=== PATIENT | male | born 2000 | race Caucasian/White ===

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

== ENCOUNTER 2024-05-03 22:58 | Emergency (ER) | payer MEDICAID, SELFPAY ==
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
[2024-05-03 23:33] LABS: Lactate 3.5 mmol/L (0.6-1.4)
[2024-05-03 23:37] LABS: Abs Immature Grans 0.39 10^3/uL (0.0-0.06); Absolute Basophil Count 0.06 10^3/uL (0.0-0.2); Absolute Eosinophil Count 0.06 10^3/uL (0.0-0.7); Absolute Lymphocyte Count 2.91 10^3/uL (1.2-3.4); Absolute Neutrophil Count 6.19 10^3/uL (1.2-6.7); Basophils % 0.6 %; Eosinophils % 0.6 %; HCT 36.6 % (40.0-50.0); HGB 13.2 g/dL (13.5-17.5); Immature Grans % 3.7 %; Lymphocytes % 27.4 %; MCH 32.2 pg (27.0-33.0); MCHC 36.1 % (32.0-36.0); MCV 89 fL (80-95); MPV 9.7 fL (8.0-11.0); Monocytes % 9.4 %; Neutrophils % 58.3 %; Platelet Count 280 10^3/uL (130-400); RDW 11.9 % (11.8-14.1); RDW-SD 38.4 fL; WBC 10.61 10^3/uL (4.4-10.8)
[2024-05-03] MEDS: Ondansetron 4 MG/2 ML VIAL (23:37)
[2024-05-03 23:38] VITALS: PULSE 75; RESP 14; O2SAT 100
[2024-05-03] MEDS: fentaNYL 100 MCG/2 ML VIAL 50 MCG IVP (23:38)
[2024-05-03 23:40] VITALS: BP 145/79; PULSE 76; PULSE 81; RESP 18; RESP 19; O2SAT 100; O2SAT 98
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
[2024-05-03 23:44] VITALS: BP 151/75; PULSE 80; RESP 21; O2SAT 100
[2024-05-03 23:47] VITALS: BP 151/75; PULSE 69; PULSE 73; RESP 20; O2SAT 100
[2024-05-03 23:50] VITALS: PULSE 79; RESP 19
[2024-05-03] MEDS: Omnipaque 350 MG/ML 100 ML BTL IJ (23:50)
[2024-05-03] MEDS: Normal Saline - Diluent 50 ML VIAL IJ (23:51)
[2024-05-03 23:58] LABS: INR 1.2 (0.9-1.1); PTT Activated 24.4 sec (23.6-32.8); Prothrombin Time 11.6 sec (9.1-11.1)
[2024-05-04] VITALS: O2SAT 100
[2024-05-04 00:03] LABS: ALT 46 U/L (16-63); AST 35 U/L (15-37); Albumin 3.3 g/dL (3.4-5.0); Alkaline Phosphatase 63 U/L (46-116); Amylase 38 U/L (25-115); BUN 9 mg/dL (7-18); Bilirubin, Total 0.48 mg/dL (0.2-1.0); Calcium 7.2 mg/dL (8.5-10.1); Chloride 107 mmol/L (98-107); ETHANOL BLOOD 218.3 mg/dL (<10); Estimated GFR 109.81 (mL/min/1.73m2); Glucose 202 mg/dL (74-106); Lipase 131 U/L (16-77); Magnesium 1.6 mg/dL (1.8-2.4); Sodium 142 mmol/L (136-145); Total Protein 6.1 g/dL (6.4-8.2); Troponin I < 50 ng/L (< or =60)
[2024-05-04 00:04] LABS: Potassium 2.9 mmol/L (3.5-5.1)
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
== END 2024-05-04 00:21 | disposition short-term general hospital (02) ==
PROVIDERS: Emergency Provider Student in an Organized Health Care Education/Training Program
DX: S06.6XAA Traumatic subarachnoid hemorrhage with loss of consciousness status unknown, initial encounter (principal); V43.52XA Car driver injured in collision with other type car in traffic accident, initial encounter; H53.142 Visual discomfort, left eye; S01.81XA Laceration without foreign body of other part of head, initial encounter
CPT/HCPCS: 36416; 51702; 74177; 80053; 82962; 83690; 86850; 86900; 86901; 93005; 96374; 99291; 70450; 70486; 71045; 71260; 72125; 80320; 81003; 82150; 83605; 83735; 84484; 85025; 85610; 85730; 93010; J2405; J3010; J3490